=== PATIENT | female | born 1995 | race Caucasian/White ===

== ENCOUNTER 2018-12-14 20:40 | Emergency (ER) | payer OTHER ==
[~2018-12-14] VITALS: Ht 165.1 cm; Wt 110.2 kg
[~2018-12-14 20:40] MED LIST: AMOXICILLIN 50500 MG PO; AMOXICILLIN875 MG PO; ANTIVERT25 MG PO; BACTRIM DS TAB1 EACH PO; BIRTH CONTROL; FLEXERIL PO; IBUPROFEN 400400 M2 PO; MOTION RELIEF25 MG PO; NOHOMEMEDICATIONS; NORCO 5-325 TA1 EACH PO; PRENATA CHEWAB1 EACH; TRAMADOL 50 MG50 MG PO
[2018-12-14 21:38] LABS: URINE BILIRUBIN NEGATIVE (Negative); URINE BLOOD 1+ (Negative); URINE CLARITY CLEAR; URINE COLOR YELLOW; URINE GLUCOSE-RANDOM NEGATIVE (Negative); URINE KETONES NEGATIVE (Negative); URINE LEUKOCYTES-REFLEX 1+ (Negative); URINE NITRITE-REFLEX NEGATIVE (Negative); URINE PROTEIN NEGATIVE (Negative); URINE SPECIFIC GRAVITY 1.025 (1.005-1.030); URINE UROBILINOGEN 0.2 E.U./dl (0.2-1.0)
[2018-12-14 21:44] LABS: BACTERIA-REFLEX 1-9 Few /HPF (None Seen); CASTS None Seen /LPF (None Seen); CRYSTALS None Seen /LPF (None Seen); MUCUS None Seen strn/LPF (None Seen); SQUAMOUS >10 Many /LPF (0-3); URINE RBC 0-2 Rare /HPF (0-2); URINE WBC-REFLEX 0-5 Rare /HPF (0-5)
[2018-12-14] MEDS ORDERED: DOXYCYCLINE MO100 M1 PO (21:49)
[2018-12-14] MEDS ORDERED: ACETAMINOPHEN-1 EAC1 PO (21:49)
[2018-12-14 21:56] VITALS: BP 148/74
== END 2018-12-14 21:57 | disposition home or self-care (01) ==
LOC: M.ERS 20:40
PROVIDERS: Physician Assistant
DX: Z20.2 Contact with and (suspected) exposure to infections with a predominantly sexual mode of transmission (principal); N89.8 Other specified noninflammatory disorders of vagina; F17.200 Nicotine dependence, unspecified, uncomplicated; Z88.6 Allergy status to analgesic agent

== ENCOUNTER 2019-02-27 12:26 | Emergency (ER) | payer OTHER ==
[~2019-02-27] VITALS: Ht 162.6 cm; Wt 111.1 kg
[~2019-02-27 12:26] MED LIST changes: +ACETAMINOPHEN-1 EAC1 PO; +DOXYCYCLINE MO100 M1 PO
[2019-02-27] MEDS ORDERED: DOXYCYCLINE MO100 M1 PO (13:22)
[2019-02-27 13:29] VITALS: BP 154/80
[2019-02-27 13:32] LABS: URINE BILIRUBIN NEGATIVE (Negative); URINE BLOOD 1+ (Negative); URINE CLARITY CLEAR; URINE COLOR YELLOW; URINE GLUCOSE-RANDOM NEGATIVE (Negative); URINE KETONES NEGATIVE (Negative); URINE LEUKOCYTES-REFLEX NEGATIVE (Negative); URINE NITRITE-REFLEX NEGATIVE (Negative); URINE PROTEIN TRACE (Negative); URINE SPECIFIC GRAVITY >= 1.030 (1.005-1.030); URINE UROBILINOGEN 0.2 E.U./dl (0.2-1.0)
[2019-02-27 13:39] LABS: SQUAMOUS 4-10 Moderate /LPF (0-3)
[2019-02-27 13:40] LABS: BACTERIA-REFLEX 1-9 Few /HPF (None Seen); CASTS None Seen /LPF (None Seen); MUCUS 4-6 Moderate strn/LPF (None Seen); URINE RBC 3-10 Few /HPF (0-2); URINE WBC-REFLEX 0-5 Rare /HPF (0-5)
[2019-02-27 13:41] LABS: CRYSTALS None Seen /LPF (None Seen)
== END 2019-02-27 13:32 | disposition home or self-care (01) ==
LOC: M.ERS 12:26
PROVIDERS: Physician Assistant
DX: N72 Inflammatory disease of cervix uteri (principal); Z88.6 Allergy status to analgesic agent

== ENCOUNTER 2019-04-01 14:46 | Emergency (ER) | payer OTHER ==
[~2019-04-01] VITALS: Ht 162.6 cm; Wt 112.0 kg
[2019-04-01 14:53] VITALS: BP 153/72
[2019-04-01] MEDS ORDERED: NAPROSYN500 MG PO (15:04)
== END 2019-04-01 15:15 | disposition home or self-care (01) ==
LOC: M.ERS 14:46
DX: S46.812A Strain of other muscles, fascia and tendons at shoulder and upper arm level, left arm, initial encounter (principal); X58.XXXA Exposure to other specified factors, initial encounter; Y93.89 Activity, other specified; Y92.89 Other specified places as the place of occurrence of the external cause; Y99.8 Other external cause status; Z88.8 Allergy status to other drugs, medicaments and biological substances

== ENCOUNTER 2021-05-24 10:30 | Emergency (ER) | payer OTHER ==
[~2021-05-24] VITALS: Ht 165.1 cm; Wt 117.0 kg
[~2021-05-24 10:30] MED LIST changes: +NAPROSYN500 MG PO
[2021-05-24] MEDS ORDERED: FLAGYL500 M1 PO (10:37)
[2021-05-24] MEDS ORDERED: PAXIL20 MG PO (10:37)
[2021-05-24 12:15] LABS: URINE BILIRUBIN NEGATIVE (Negative); URINE BLOOD TRACE (Negative); URINE CLARITY CLEAR; URINE COLOR YELLOW; URINE GLUCOSE-RANDOM NEGATIVE (Negative); URINE KETONES TRACE (Negative); URINE LEUKOCYTES TRACE (Negative); URINE NITRITE NEGATIVE (Negative); URINE PROTEIN NEGATIVE (Negative); URINE SPECIFIC GRAVITY 1.025 (1.005-1.030); URINE UROBILINOGEN 0.2 E.U./dl (0.2-1.0)
[2021-05-24 12:25] LABS: BACTERIA 1-9 Few /HPF (None Seen); CASTS None Seen /LPF (None Seen); CRYSTALS None Seen /LPF (None Seen); MUCUS None Seen strn/LPF (None Seen); SQUAMOUS >10 Many /LPF (0-3); URINE RBC 0-2 Rare /HPF (0-2); URINE WBC 0-5 Rare /HPF (0-5)
[2021-05-24 14:52] VITALS: BP 129/71
== END 2021-05-24 14:53 | disposition home or self-care (01) ==
LOC: M.ERS 10:30
PROVIDERS: Emergency Medicine
DX: R10.32 Left lower quadrant pain (principal); Z87.42 Personal history of other diseases of the female genital tract; Z79.899 Other long term (current) drug therapy; Z88.8 Allergy status to other drugs, medicaments and biological substances

== ENCOUNTER 2021-08-31 14:54 | Emergency (ER) | payer OTHER ==
[~2021-08-31] VITALS: Ht 165.1 cm; Wt 113.4 kg
[~2021-08-31 14:54] MED LIST changes: +FLAGYL500 M1 PO; +PAXIL20 MG PO
[2021-08-31 15:00] VITALS: BP 128/86
[2021-08-31] MEDS ORDERED: CIPROFLOXIN HC2.5 M1 OPHTHALMIC (15:48)
[2021-08-31] MEDS ORDERED: AMOXIL 875 MG875 M1 PO (15:48)
== END 2021-08-31 15:57 | disposition home or self-care (01) ==
LOC: M.ERS 14:54
DX: H66.91 Otitis media, unspecified, right ear (principal); H60.91 Unspecified otitis externa, right ear; Z79.899 Other long term (current) drug therapy; Z88.8 Allergy status to other drugs, medicaments and biological substances